=== PATIENT | female | born 1985 | race American Indian/Alaskan Native ===

== ENCOUNTER 2018-04-12 01:26 | Emergency (ER) | payer MEDICAID ==
[2018-04-12 01:35] VITALS: BMI 26.3
[2018-04-12 01:55] LABS: HCG,QUALITATIVE URINE POSITIVE (NEGATIVE)
[2018-04-12 02:04] LABS: SQUAMOUS EPITHIAL 1 /hpf (0-5); URINE BILIRUBIN NEGATIVE (NEGATIVE); URINE CLARITY Clear (Clear); URINE COLOR Yellow (YELLOW); URINE GLUCOSE (UA) NORMAL (Normal); URINE LEUKOCYTE ESTERASE NEG Leu/uL (Negative); URINE PROTEIN NEGATIVE (NEGATIVE)
[2018-04-12 02:05] LABS: URINE BLOOD NEGATIVE (NEGATIVE)
[2018-04-12] MEDS ORDERED: Lidocaine 1% Inj (20ml) INFIL STA (02:20)
[2018-04-12] MEDS ORDERED: Lidocaine Hydrochloride 5 ML INJ ONE (02:27)
--- NOTE | 2018-04-12 03:01 | C.PDOC ---
History Of Present Illness 32 y/o female presents to the ED complaining of pain, tenderness and swelling to the right labia majora.She admits to waxing her bikini area. the patient reports a hx of abscesses in the groin area. She is currently nine weeks . She has a of 4, a para or 3 and an abortus of 0. Time Seen by Provider: 04/12/18 01:59 Chief Complaint (Nursing): Female Genitourinary History Per: Patient History/Exam Limitations: no limitations Onset/Duration Of Symptoms: Days Current Symptoms Are (Timing): Still Present Quality Of Discomfort: "Pain" Associated Symptoms: denies: Urinary Symptoms Recent travel outside of the [place]: No : 4 Para: 3 Miscarriage: 0 Past Medical History Reviewed: Historical Data, Nursing Documentation, Vital Signs Vital Signs: Last Vital Signs Temp 98.9 F 04/12/18 01:35 Pulse 83 04/12/18 01:35 Resp 18 04/12/18 01:35 BP 122/85 04/12/18 01:35 Pulse Ox 100 04/12/18 01:35 - Medical History PMH: No Chronic Diseases Other Surgeries: abcess removal - [facility] Procedures ASPIRATION SKIN & SUBQ (07/02/13) OTHER SKIN & SUBQ I D (03/07/14) Family History: States: Unknown Family Hx - Social History Hx Tobacco Use: No Hx Alcohol Use: No Hx Substance Use: No - Immunization History Hx Tetanus Toxoid Vaccination: Yes Hx Influenza Vaccination: No Hx Pneumococcal Vaccination: No Review Of Systems Except As Marked, All Systems Reviewed And Found Negative. Constitutional: Negative for: Fever, Chills Genitourinary: Positive for: Other (pain, tenderness and swelling to the right labia majora). Negative for: Dysuria, Frequency Physical Exam - Physical Exam Appears: Non-toxic, No Acute Distress Skin: Warm, Dry Head: Atraumatic, Normacephalic Eye(s): bilateral: PERRL, EOMI Oral Mucosa: Moist Neck: Supple Chest: Symmetrical Cardiovascular: Rhythm Regular, No Murmur Respiratory: No Rales, No Rhonchi, No Wheezing Gastrointestinal/Abdominal: Soft, No Tenderness, No Distention Back: No CVA Tenderness Extremity: Normal ROM Extremity: Bilateral: Normal Color And Temperature, Normal ROM Neurological/Psych: Oriented x3, Normal Speech ED Course And Treatment O2 Sat by Pulse Oximetry: 100 (RA) Pulse Ox Interpretation: Normal Procedure: Blank - Time Time Performed: 02:25 - Consent obtained: Consent obtained: Verbal - Performed by: Performed by:: Attending physician - Topical: Local/Regional Anesthetic:: Lidocaine 1% - Location Location: Inferior (labia majora) - Description Discription of Procedure: 04/12/18 - Result Result: Successful - Patient Tolerated Procedure Patient Tolerated Procedure:: Well Medical Decision Making Medical Decision Making: recurrent labia majora furuncle vs abscess no s/p I&D x 5 cc's puss amox x 3 days no relation with 9 weeks preg [id number] Disposition Doctor Will See Patient In The: Office Counseled Patient/Family Regarding: Studies Performed, Diagnosis - Disposition Referrals: [facility] [Outside] [facility] [Outside] [facility] [Outside] [place] [employer] [facility] [Outside] Disposition: HOME/ ROUTINE Disposition Time: 03:00 Condition: GOOD Additional Instructions: amoxicillin 500 mg twice a day for 5 days remove packing in 2 days return for any significant changes/worstening Prescriptions: Amoxicillin [Amoxil 500 mg Cap] 500 mg PO BID #9 cap Instructions: Skin Abscess Forms: [facility] ([place]) - Clinical Impression Clinical Impression: Abscess - Scribe Statement The provider has reviewed the documentation as recorded by the Scribe Provider Attestation: Holly Mclean All medical record entries made by the Scribe were at my direction and personally dictated by me. I have reviewed the chart and agree that the record accurately reflects my personal performance of the history, physical exam, medical decision making, and the department course for this patient. I have also personally directed, reviewed, and agree with the discharge instructions and disposition.
[2018-04-12 03:41] VITALS: BP 130/80; PULSE 84; RESP 14; TEMP 98.5
[2018-04-12 04:35] VITALS: O2SAT 100
== END 2018-04-12 03:41 | disposition home or self-care (01) ==
LOC: C.ER 01:26
DX: O23.591 Infection of other part of genital tract in pregnancy, first trimester (principal); Z3A.09 9 weeks gestation of pregnancy

== ENCOUNTER → 2018-07-05 | Emergency (ER) | payer MEDICAID | LOC: C.EROB 16:03 ==

== ENCOUNTER 2018-08-19 20:05 | Emergency (ER) | payer MEDICAID ==
[2018-08-19 20:10] VITALS: BMI 30.2
[2018-08-19 20:54] LABS: SQUAMOUS EPITHIAL 1 /hpf (0-5); URINE BILIRUBIN NEGATIVE (NEGATIVE); URINE BLOOD NEGATIVE (NEGATIVE); URINE CLARITY Hazy (Clear); URINE COLOR Yellow (YELLOW); URINE GLUCOSE (UA) NORMAL (Normal); URINE LEUKOCYTE ESTERASE NEG Leu/uL (Negative); URINE PROTEIN NEGATIVE (NEGATIVE)
[2018-08-20 01:22] VITALS: BP 124/71; PULSE 103; RESP 18
== END 2018-08-19 21:12 | disposition home or self-care (01) ==
LOC: C.EROB 20:05
DX: O26.892 Other specified pregnancy related conditions, second trimester (principal); R10.9 Unspecified abdominal pain; Z3A.27 27 weeks gestation of pregnancy